=== PATIENT | female | born 1975 | race African-American/Black ===

== ENCOUNTER 2019-08-18 14:04 | Emergency (ER) | payer SELFPAY ==
[~2019-08-18] VITALS: Ht 162.6 cm; Wt 96.2 kg
[2019-08-18 14:30] VITALS: BP 111/62
--- NOTE | 2019-08-18 14:30 | NUR ---
ED Nurse Note: Pt walked in from home c/o pain swelling and tenderness on left breast x 9 days. Pt reports chills. Pt reports taking tylenol 4 times a day since the pain started. Respirations even and unlabored on room air. Vitals stable as documnted.
--- NOTE | 2019-08-18 15:09 | Emergency Room Report ---
History of Present Illness General Chief Complaint: Skin Rash/Abscess Source: Patient Present Illness HPI 43-year-old female presents to the emergency department complaining of 9 out of 10 in severity localized pain to the lateral aspect of the left breast with associated warmth and erythema. Patient reports history of breast abscess in this location in the past. Patient states she also had biopsy and a marker placed as well by the surgeon. Patient reports her symptoms have been progressive over 9 days. She has been taking Tylenol to manage her pain. Patient states she is also began to have some chills. Patient is not currently breast-feeding. She denies subjective fevers. She denies history of immune compromise. No other aggravating or relieving factors at this time. Patient reports her pain is exacerbated severely upon palpation of the left breast. COVID-19 risk:Travel to affect: No Allergies: Coded Allergies: PENICILLINS (Verified Allergy, Unknown, 08/18/19) HIVES Patient History Past Medical History: see triage record Past Surgical History: none Pertinent Family History: none Last Menstrual Period: one month ago Now: No Reviewed Nursing Documentation: PMH: Agreed; PSxH: Agreed Nursing Documentation-PMH Past Medical History: No Stated History Review of Systems All Other Systems: negative except mentioned in HPI Physical Exam Vital Signs Date Time Temp Pulse Resp B/P (MAP) Pulse Ox O2 Delivery O2 Flow Rate FiO2 08/18/19 14:27 98.2 92 16 111/62 (78) 99 Room Air Sp02 EP Interpretation: reviewed, normal General Appearance: no apparent distress, alert, GCS 15, non-toxic Head: normocephalic, atraumatic Eyes: bilateral eye normal inspection, bilateral eye PERRL ENT: hearing grossly normal, normal voice Neck: full range of motion Respiratory: lungs clear, normal breath sounds, no wheezing, speaking full sentences Cardiovascular #1: regular rate, rhythm Musculoskeletal: normal range of motion, gait/station normal, non-tender Neurologic: alert, motor strength/tone normal, oriented x3, sensory intact, responsive, speech normal Psychiatric: judgement/insight normal Skin: other - Erythema, warmth and palpable fluctuance in the left breast lateral to the nipple in the 4 o'Clock position. Lymphatic: no adenopathy Medical Decision Making PA Attestation Dr. Simmons is my supervising Physician whom patient management has been discussed with. Diagnostic Impression: Primary Impression: Breast abscess ER Course 43-year-old female presents to the emergency department complaining of 9 out of 10 in severity localized pain to the lateral aspect of the left breast with associated warmth and erythema. Patient reports history of breast abscess in this location in the past. Patient states she also had biopsy and a marker placed as well by the surgeon. Patient reports her symptoms have been progressive over 9 days. She has been taking Tylenol to manage her pain. Patient states she is also began to have some chills. Patient is not currently breast-feeding. She denies subjective fevers. She denies history of immune compromise. No other aggravating or relieving factors at this time. Patient reports her pain is exacerbated severely upon palpation of the left breast. Ddx considered but are not limited to cellulitis, abscess, mastitis, shingles, malignancy just to name a few. Vital signs: are WNL, pt. is afebrile H&PE are most consistent with Left breast ST cellulitis and suspected abscess. ORDERS: none required at this time, the diagnosis is clinical ED INTERVENTIONS: --I & D / Needle aspiration were the recommended treatments of choice and highly encouraged. However, this patient is declining and wants to attempt aggressive antibiotic treatment and will consider I&D if her symptoms are not improving. 1.5g Vancomycin IV Pt. is given very strict ED return precautions for development of fevers, progression of erythema or worsening of her current symptoms or developing new symptoms. Patient verbalizes her understanding and agreement with this treatment plan. DISCHARGE: At this time pt. is stable for d/c to home. Will provide printed patient care instructions, and any necessary prescriptions. Care plan and follow up instructions have been discussed with the patient prior to discharge. Last Vital Signs Date Time Temp Pulse Resp B/P (MAP) Pulse Ox O2 Delivery O2 Flow Rate FiO2 08/18/19 14:30 98.2 84 16 111/62 99 Room Air Disposition: HOME, SELF-CARE Condition: Stable Scripts Lactobacillus Combo No.10 (PROBIOTIC) 1 Each Capsule 1 EACH PO BID, #14 CAP Prov: Justyna Gutierrez 08/18/19 Ibuprofen* (MOTRIN*) 400 Mg Tablet 400 MG ORAL THREE TIMES A DAY, #30 TAB 0 Refills Prov: Justyna Gutierrez 08/18/19 Hydrocodone Bit/Acetaminophen 5-325* (NORCO 5-325 TABLET*) 1 Each Tablet 1 TAB ORAL Q6H PRN for FOR PAIN, #12 TAB 0 Refills Prov: Justyna Gutierrez 08/18/19 Clindamycin Hcl (CLINDAMYCIN HCL) 300 Mg Capsule 300 MG ORAL TID for 7 Days, #21 CAP Prov: Justyna Gutierrez 08/18/19 Patient Instructions: Mastitis Additional Instructions: Take medications as directed. Do not drink alcohol, drive, or operate heavy machinery while taking Caret as this may cause drowsiness. DO NOT TAKE TYLENOL IN ADDITION TO NORCO, as NORCO Has Tylenol In it. Follow up with a Primary Care Provider in 3-5 days, even if your symptoms have resolved. Return sooner to ED if new symptoms occur, or current symptoms become worse. - Please note that this Emergency Department Report was dictated using [employer] nurse practitioner technology software, occasionally this can lead to erroneous entry secondary to interpretation by the dictation equipment. Justyna Gutierrez Aug 18, 2019 15:09
[2019-08-18] MEDS ORDERED: Vancomycin 1.5 GM in NS 275 ML IVPB ONE ×4 (15:15)
[2019-08-18] MEDS ORDERED: HYDROcodone/Acetamin 5/325 tab ORAL ONE (15:15)
[2019-08-18] MEDS ORDERED: Vancomycin 1.5gm/NS Premix 275 ML IVPB SCH (15:15)
[2019-08-18] MEDS ORDERED: Ketorolac 30mg Inj IV ONE (15:15)
[2019-08-18 16:30] VITALS: BP 119/68
[2019-08-18] MEDS ORDERED: CLINDAMYCIN HC300 MG ORAL (16:50)
[2019-08-18] MEDS ORDERED: NORCO 5-325 TA1 EAC1 ORAL (16:50)
[2019-08-18] MEDS ORDERED: IBUPROFEN400 MG ORAL (16:50)
[2019-08-18] MEDS ORDERED: PROBIOTIC1 EAC4 PO (16:56)
[2019-08-18 17:45] VITALS: BP 126/71
--- NOTE | 2019-08-18 17:45 | NUR ---
ER DISCHARGE NOTE: Patient is cleared to be discharged per ERMD, pt is aox4, on room air, with stable vital signs. pt was given dc and prescription instructions, pt was able to verbalize understanding, pt id band and iv site removed without complications. pt is able to ambulate with steady gait. pt took all belongings.
== END 2019-08-18 17:45 | disposition home or self-care (01) ==
LOC: EMR 15:00
DX: N61.1 Abscess of the breast and nipple (principal); Z88.0 Allergy status to penicillin
CPT/HCPCS: 96365; 96366; 96375; 99284; J1885; J3370; J7050